=== PATIENT | female | born 1965 | race Caucasian/White ===

== ENCOUNTER → 2016-11-10 | Outpatient (CLI) | payer OTHER ==
--- NOTE | 2016-11-10 08:48 | DX ---
Cervical Spine, Two Views Indication: Cervical spine stenosis. Technique: Upright AP and lateral views Comparison: None Findings: The occiput through T1 is anatomically aligned. Minimal multilevel facet arthropathy and m inimal degenerative disk disease at C4-C5, C5-C6 and C6-C7. Disk heights are relatively well preserve d. Prevertebral soft tissues are normal. Lung apices are clear. Impression: Good alignment. Minimal multilevel degenerative facet and disk arthropathy.
== END ==
LOC: FIMAGING 07:32
PROVIDERS: ATTEND Orthopaedic Surgery Orthopaedic Surgery of the Spine
DX: M50.30 Other cervical disc degeneration, unspecified cervical region (principal)

== ENCOUNTER 2016-12-05 15:57 | Emergency (ER) | payer OTHER ==
[2016-12-05 16:30] VITALS: BP 163/102; PULSE 113; RESP 16; TEMP 98.4; O2SAT 93
[2016-12-05] MEDS ORDERED: CYCLOBENZAPRINE 10MG PREPACK#3 BTL TAKEHOME ONE (16:45)
[2016-12-05] MEDS ORDERED: CYCLOBENZAPRINE 10 MG TAB PO ONE (16:45)
[2016-12-05] MEDS ORDERED: KETOROLAC 30 MG/1 ML SDV IM ONE (16:45)
--- NOTE | 2016-12-05 16:51 | UCPHY ---
H & P Time Seen by Provider: 12/05/16 16:31 Patient Type: Established HPI/ROS: HPI Exacerbation of chronic neck pain. 51-year-old female by private vehicle. This patient has a history of degenerative disc disease and degenerative arthritis in her cervical spine. She reports worsening right lateral neck pain over the last 2-3 days with muscle spasming. There is no history of acute fall or other traumatic event. She currently is taking Robaxin, Percocet and has a fentanyl patch for this pain. She denies any loss of sensation or weakness in her extremities. She has had no bowel or bladder incontinence. No other neurologic complaints. She states this is the same neck pain she has been dealing with since 2013. ROS: Constitutional: No fever, no chills. No weakness. Genitourinary: No hematuria. No dysuria or increased frequency with urination. Musculoskeletal: No back pain. As above. Skin: No rashes. Neurological: No headache. No focal weakness or altered sensation. Past medical history: As above. 6 back surgeries, chronic back pain and neck pain, biliary bypass. She is currently being managed by Dr. Donna العراقي of the [facility]. Social history: She is here by herself. Physical Exam: General Appearance: Alert, she appears uncomfortable. This patient is responding to questions appropriately and in full sentences. This patient appears well-hydrated and well-nourished. Eyes: Pupils equal and round no pallor or injection. No lid edema, erythema or injection. Neurological: Motor sensory function is grossly intact. She is neurologically intact in the bilateral upper and bilateral lower extremities. Cranial nerves are normal. Gait is normal. Skin: Warm and dry, no rashes. Musculoskeletal: Neck is supple . She has no midline cervical, thoracic tenderness on palpation. She has vague pain with palpation of the lateral soft tissues on the right side of the neck extending down into the mid trapezius muscle on the right side. Extremities are symmetrical. All joints range without pain or impingement. Psychiatric: No agitation. No depression. Database: EKG: Imaging: Procedures: Emergency department course: Her medical records were reviewed. Cervical spine MRI from 11/10/[address] Jessica العراقي shows good alignment, minimal multilevel degenerative facet and disc arthropathy. She has no history of renal dysfunction or contraindications to NSAIDs. She has been taking Percocet and is currently on a fentanyl patch. Review of her lab work from previous blood draws shows a normal creatinine. She was given 60 mg of IM Toradol and 10 mg of oral Flexeril. 5:40 p.m., patient re-evaluated. She is feeling better at this time and states that her neck pain is significantly improved. Repeat neurologic Assessment is nonfocal. She has no midline cervical tenderness on palpation. She feels comfortable going home and I feel she is safe for discharge. I discussed follow- up with her spinal specialist, Dr. Jessica العراقي as well as her primary care physician for re-evaluation and ongoing management. I discussed the results of her x-rays as above. She feels comfortable with this plan. I will prescribe her Flexeril. Return to Urgent Care/emergency department precautions were reviewed with her. All of her questions were answered. She was discharged in good condition. Differential Diagnosis: The differential diagnosis on this patient includes but is not limited to exacerbation of chronic neck pain. Acute fracture, subluxation, dislocation, epidural compression syndrome, radiculopathy unlikely. This represents a partial list of diagnoses considered. These considerations are based on history , physical exam, past history, reassessment and diagnostic testing. Smoking Status: Never smoked Constitutional: Initial Vital Signs Temperature (C) 36.9 C 12/05/16 16:24 Heart Rate 113 H 12/05/16 16:24 Respiratory Rate 16 12/05/16 16:24 Blood Pressure 163/102 H 12/05/16 16:24 O2 Sat (%) 93 12/05/16 16:24 Allergies/Adverse Reactions: No Known Allergies Allergy (Verified 12/05/16 16:21) Home Medications: Medication Instructions Recorded Percocet 10-325 mg Tablet 1 tab 5XD 10/11/13 fentanYL 75 mcg 10/11/13 Estradiol 05/03/16 Cyclobenzaprine [Flexeril 10 MG 10 mg PO TID #9 tab 12/05/16 (*)] Wellbutrin 100mg (*) 12/05/16 Zofran Odt 12/05/16 Medical Decision Making - Data Points Medications Given: Discontinued Medications Cyclobenzaprine HCl (Flexeril) 10 mg PO EDNOW ONE Stop: 12/05/16 16:46 Last Admin: 12/05/16 17:11 Dose: 10 mg Cyclobenzaprine HCl (Flexeril 10 Mg Prepack#3) 1 btl TAKEHOME EDNOW ONE Stop: 12/05/16 16:46 Last Admin: 12/05/16 17:12 Dose: 1 btl Ketorolac Tromethamine (Toradol) 60 mg IM EDNOW ONE Stop: 12/05/16 16:46 Last Admin: 12/05/16 17:12 Dose: 60 mg Departure - Departure Disposition: Home, Routine, Self-Care Clinical Impression: Neck pain, chronic Condition: Good Instructions: Neck Pain (ED) Additional Instructions: Read and follow provided instructions. Follow-up with your primary care physician or Dr. Jessica العراقي in 1-2 days for re-evaluation. Take medication as prescribed only. Return to the emergency department for worsening pain, numbness or weakness in your extremities or other serious concerns. Referrals: Zia Lin, [Primary Care Provider] - As per Instructions Stand Alone Forms: Work Excuse Prescriptions: Cyclobenzaprine [Flexeril 10 MG (*)] 10 mg PO TID #9 tab - PQRS PQRS Measurement: 134: Depression screening and followup, PRIME MD-PHQ2 (12 years and older) Over the last 2 weeks, how often have you been bothered by any of the following problems? 1. Feeling down, depressed, or hopeless? 2. Little interest or pleasure in doing things? Answered no to both questions. 130: Documentation of medications. Reviewed all patient medications, doses, route and frequency. 226: Do you smoke? No. 47: 65 and older: Advanced care planning. Patient designates surrogate decision maker as family. 51: 18 years old and older with diagnosis of COPD, spirometry performance. NA 52: 18 years old and older with COPD and symptoms of COPD or FEV1<60% predicted prescribed a B Agonist. NA
== END 2016-12-05 18:00 | disposition home or self-care (01) ==
LOC: CED 15:57
DX: M54.2 Cervicalgia (principal)
CPT/HCPCS: G0463-PO; J1885

== ENCOUNTER → 2017-05-12 | Outpatient (CLI) | payer OTHER | LOC: CIMAGING 08:38 | PROVIDERS: ATTEND Family Medicine | DX: Z12.31 Encounter for screening mammogram for malignant neoplasm of breast (principal) | CPT/HCPCS: G0202 ==

== ENCOUNTER → 2017-08-29 | Outpatient (CLI) | payer OTHER | LOC: CIMAGING 11:01 | PROVIDERS: ATTEND Family Medicine | DX: M50.30 Other cervical disc degeneration, unspecified cervical region (principal) | CPT/HCPCS: 72040-PO ==

== ENCOUNTER → 2017-11-27 | Outpatient (CLI) | payer OTHER | LOC: FIMAGING 11:50 | PROVIDERS: ATTEND Family Medicine | DX: M50.321 Other cervical disc degeneration at C4-C5 level (principal); M48.02 Spinal stenosis, cervical region; M25.78 Osteophyte, vertebrae; M50.021 Cervical disc disorder at C4-C5 level with myelopathy ==

== ENCOUNTER → 2017-12-19 | Outpatient (CLI) | payer OTHER | LOC: CIMAGING 14:24 | PROVIDERS: ATTEND Family Medicine | DX: M54.17 Radiculopathy, lumbosacral region (principal) | CPT/HCPCS: 72100-PO ==

== ENCOUNTER → 2018-03-10 | Outpatient (CLI) | payer OTHER | LOC: CIMAGING 16:12 | PROVIDERS: ATTEND Family Medicine | DX: R05 Cough (principal) | CPT/HCPCS: 71046-PO ==

== ENCOUNTER → 2018-07-03 | Outpatient (CLI) | payer OTHER | LOC: FIMAGING 11:32 | PROVIDERS: ATTEND Neurological Surgery | DX: M48.02 Spinal stenosis, cervical region (principal); Z98.890 Other specified postprocedural states ==

== ENCOUNTER → 2019-01-17 | Outpatient (CLI) | payer OTHER | LOC: BRMIMAGING 08:29 | PROVIDERS: ATTEND Family Medicine | DX: Z13.820 Encounter for screening for osteoporosis (principal); M81.0 Age-related osteoporosis without current pathological fracture; E28.39 Other primary ovarian failure; E78.5 Hyperlipidemia, unspecified; Z78.0 Asymptomatic menopausal state; Z87.81 Personal history of (healed) traumatic fracture; Z82.62 Family history of osteoporosis ==